=== PATIENT | male | born 1945 | race Caucasian/White ===

== ENCOUNTER 2024-02-18 00:48 | Emergency (ER) | payer OTHER ==
[2024-02-18] MEDS ORDERED: Sodium Chloride 0.9% 10 ML Syringe FLUSH PRN (01:20)
[2024-02-18 01:55] LABS: HEMATOCRIT 38.9 % (40.0-54.0); HEMOGLOBIN 12.9 g/dL (13.0-18.0); MEAN CORPUSCULAR HEMOGLOBIN 31.9 pg (27.0-32.0); MEAN CORPUSCULAR HGB CONC 33.2 g/dL (31.0-35.0); MEAN PLATELET VOLUME 9.2 fL (6.0-10.0); RED BLOOD CELL COUNT 4.05 M/uL (4.50-6.50); RED CELL DISTRIBUTION WIDTH 15.4 % (11.0-16.0); WHITE BLOOD CELL COUNT,WBC 6.4 K/uL (4.0-11.0)
[2024-02-18 02:08] LABS: A/G RATIO 1.1 (0.8-2.0); ALBUMIN 3.7 g/dL (3.4-5.0); ANION GAP 14.6 mmol/L (5.0-15.0); BILIRUBIN TOTAL 0.4 mg/dL (0.0-1.0); BUN/CREATININE RATIO 12.2 (6-25); CALCIUM 8.4 mg/dL (8.5-10.1); CREATININE 0.9 mg/dL (0.70-1.30); EST CRCL DRUG DOSING (CG) 74.37 mL/min; MAGNESIUM 2.1 mg/dL (1.8-2.4); POTASSIUM,K 3.6 mmol/L (3.5-5.1); PROTEIN TOTAL,TP 7.1 g/dL (6.4-8.2); TROPONIN I HIGH SENSITIVITY 4.4 pg/ml (<=60.4)
[2024-02-18 02:39] LABS: APPEARANCE,URINE CLEAR (CLEAR); BILIRUBIN,URINE NEGATIVE (NEGATIVE); COLOR,URINE YELLOW; GLUCOSE,URINE NEGATIVE (NEGATIVE); KETONES,URINE NEGATIVE (NEGATIVE); LEUKOCYTE ESTERASE,URINE NEGATIVE (NEGATIVE); NITRITE,URINE NEGATIVE (NEGATIVE); OCCULT BLOOD,URINE MODERATE (NEGATIVE); PH,URINE 5.5 (5.0-8.0); PROTEIN,URINE NEGATIVE (NEGATIVE); UROBILINOGEN,URINE 0.2 E.U./dL (0.2-1.0)
[2024-02-18 02:47] LABS: EPITHELIAL CELLS,URINE OCCASIONAL /HPF; RBC,URINE 0-5 /HPF; WBC,URINE NOT SEEN /HPF
[2024-02-18] MEDS: Sodium Chloride 0.9% 1,000 ML IV SCH (03:36)
== END 2024-02-18 10:30 | disposition home or self-care (01) ==
LOC: LB.ED 00:48
DX: S09.90XA Unspecified injury of head, initial encounter (principal); F10.120 Alcohol abuse with intoxication, uncomplicated; Z79.899 Other long term (current) drug therapy; W01.10XA Fall on same level from slipping, tripping and stumbling with subsequent striking against unspecified object, initial encounter
CPT/HCPCS: 36415; 70450; 72125; 80053; 80307; 81001; 83735; 84484; 85027; 99284; J7030; 99283